=== PATIENT | female | born 1970 | race Caucasian/White ===

== ENCOUNTER 2017-08-15 18:27 | Emergency (ER) | payer OTHER ==
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
== END 2017-08-15 20:44 | disposition home or self-care (01) ==
LOC: ER 18:27
DX: M25.512 Pain in left shoulder (principal); V49.49XA Driver injured in collision with other motor vehicles in traffic accident, initial encounter; Z88.6 Allergy status to analgesic agent; E03.9 Hypothyroidism, unspecified; F41.9 Anxiety disorder, unspecified
CPT/HCPCS: 70450; 72125; 99284

== ENCOUNTER 2017-12-07 23:41 | Emergency (ER) | payer OTHER, SELFPAY ==
[2017-12-08] MEDS ORDERED: NA CHLORIDE 0.9% 1,000 ML ONE (00:12)
[2017-12-08 00:45] LABS: Absolute Monocytes 0.5 K/uL (0.1-1.3); Absolute Neutrophil 4.5 K/uL (1.8-8.0); Basophils % 0.6 % (0-1.3); Eosinophils % 2.3 % (0-4.4); Hematocrit 38.7 % (36.0-45.0); Lymphocytes % 27.1 % (15.3-44.8); MCH 31.2 pg (27.0-35.0); MCV 89.6 fL (80-100); MPV 7.2 fL (7.6-11.3); Monocytes % 7.4 % (3.3-12.3); RBC Red Blood Cell Count 4.32 M/uL (3.86-4.86)
[2017-12-08 00:49] LABS: Protime INR 0.92
[2017-12-08 00:51] LABS: Barbiturates NEGATIVE (NEGATIVE); Benzodiazepines NEGATIVE (NEGATIVE); Cocaine NEGATIVE (NEGATIVE); METHAMPHETAM NEGATIVE (NEGATIVE); Methadone NEGATIVE (NEGATIVE); Opiates NEGATIVE (NEGATIVE); Phencyclidine NEGATIVE (NEGATIVE); THC Cannibis NEGATIVE (NEGATIVE)
[2017-12-08] MEDS ORDERED: ACETAMINOPHEN 500 MG TAB ONE (00:58)
[2017-12-08 01:18] LABS: Urine Blood 1+ (NEG); Urine Glucose NEGATIVE (NEG); Urine Protein 1+ (NEG); Urine Specific Gravity <1.005 (1.005-1.030); Urine pH 5.5 (5.0-7.0)
[2017-12-08 01:29] LABS: ALT/SGPT 25 U/L (12-78); AST/SGOT 21 U/L (15-37); Albumin 3.8 g/dL (3.4-5.0); Alkaline Phosphatase 92 U/L (45-117); BUN Blood Urea Nitrogen 15 mg/dL (7-18); Bicarbonate 24 mmol/L (21-32); Bilirubin Direct < 0.1 mg/dL (0-0.2); Bilirubin Total 0.3 mg/dL (0.2-1.0); Glucose Level 110 mg/dL (74-106); Potassium 3.9 mmol/L (3.5-5.1); Protein, Total 7.5 g/dL (6.4-8.2); Sodium Level 139 mmol/L (136-145)
--- NOTE | 2017-12-08 01:37 | ER ---
Nurse's Notes [facility] Name: Arlette Quiñonez Age: 47 yrs Sex: Female : 1970 Arrival Date: 12/07/2017 Time: 23:44 Bed 30 Private MD: Diagnosis: Anxiety disorder, unspecified Presentation: 12/08 00:23 Presenting complaint: Patient states: she was off from a medicine and is having mg2 withdrawal symtoms like anxiety, shaking, sweating and palpitations. she started taking zoloft recently. Transition of care: patient was not received from another setting of care. Onset of symptoms was November 2017. Risk Assessment: Do you want to hurt yourself or someone else? Patient reports no desire to harm self or others. Initial Sepsis Screen: Does the patient meet any 2 criteria? No. Patient's initial sepsis screen is negative. Does the patient have a suspected source of infection? No. Patient's initial sepsis screen is negative. Care prior to arrival: None. 00:23 Method Of Arrival: Ambulatory mg2 00:23 Acuity: LEONARDO 3 mg2 Historical: - Allergies: 00:35 Aleve; mg2 00:35 Ibuprofen; mg2 - Home Meds: 00:35 Zoloft Oral [Active]; Synthroid 100 mcg Oral tab [Active]; mg2 - PMHx: 00:35 Anxiety; Hypothyroidism; mg2 - PSHx: 00:35 Tubal ligation; mg2 - Immunization history:: Flu vaccine is not up to date. - Social history:: Smoking status: Patient/guardian denies using tobacco, Patient/guardian denies using alcohol, street drugs, IV drugs. - Ebola Screening: : No symptoms or risks identified at this time. Screenin:23 Abuse screen: Denies threats or abuse. Denies injuries from another. Nutritional mg2 screening: No deficits noted. Tuberculosis screening: No symptoms or risk factors identified. Fall Risk IV access (20 points). Assessment: 00:32 General: Appears in no apparent distress. comfortable, Behavior is calm, cooperative. mg2 Pain: Complains of pain in head Pain does not radiate. Pain currently is 5 out of 10 on a pain scale. Quality of pain is described as aching, Pain began gradually, Is intermittent. Neuro: Level of Consciousness is awake, alert, obeys commands, Oriented to person, place, time, situation. Cardiovascular: Capillary refill < 3 seconds Patient's skin is warm and dry. Respiratory: No deficits noted. GI: No deficits noted. : No deficits noted. EENT: No deficits noted. Derm: Skin is intact, is healthy with good turgor, Skin is pink, warm \T\ dry. normal. Musculoskeletal: No signs and/or symptoms reported regarding the musculoskeletal system. 01:03 Reassessment: Patient appears in no apparent distress at this time. Patient and/or mg2 family updated on plan of care and expected duration. Pain level reassessed. Patient is alert, oriented x 3, equal unlabored respirations, skin warm/dry/pink. Vital Signs: 00:00 BP 182 / 123 LA Sitting (auto/reg); Pulse 108; Pulse Ox 99% on R/A; mb4 01:21 BP 137 / 90; Pulse 93; Resp 18; Pulse Ox 100% on R/A; mg2 ED Course: 12/07 23:44 Patient arrived in ED. ds1 23:56 Chavo Devries NP is PHCP. pm1 23:57 Spenser Dietrich MD is Attending Physician. pm1 23:57 Benedicto Hayes, ROSHAN is Primary Nurse. mg2 12/08 00:01 Bed in low position. Call light in reach. Pulse ox on. NIBP on. mb4 00:23 No provider procedures requiring assistance completed. Inserted saline lock: 20 gauge mg2 in right antecubital area, using aseptic technique. Blood collected. 00:25 Triage completed. mg2 00:35 Arm band placed on. mg2 01:35 Adan Sequeira MD is Referral Physician. pm1 01:57 IV discontinued, intact, bleeding controlled, No redness/swelling at site. Pressure mg2 dressing applied. Administered Medications: 00:22 Drug: NS 0.9% 1000 ml Route: IV; Rate: 1000 ml; Site: right antecubital; mg2 01:57 Follow up: Response: No adverse reaction; IV Status: Completed infusion mg2 00:54 Drug: Tylenol 1000 mg Route: PO; mg2 01:57 Follow up: Response: No adverse reaction mg2 01:56 Drug: Ativan 0.5 mg Route: IVP; Site: right antecubital; mg2 01:57 Follow up: Response: No adverse reaction; Medication administered at discharge. mg2 Outcome: 01:36 Discharge ordered by . pm1 01:57 Discharged to home ambulatory, with family. mg2 01:57 Condition: stable 01:57 Discharge instructions given to patient, family, Instructed on discharge instructions, follow up and referral plans. medication usage, Demonstrated understanding of instructions, follow-up care, medications, Prescriptions given X 1. 01:58 Patient left the ED. mg2 Signatures: Barbara Waldrop ds1 Chavo Devries NP STREET LIGHT REPAIRER pm1 Benedicto Hayes RN RN mg2 Jackie Penaloza mb4
--- NOTE | 2017-12-08 01:37 | EDPHYS ---
Physician Documentation [facility] Name: Arlette Quiñonez Age: 47 yrs Sex: Female : 1970 Arrival Date: 12/07/2017 Time: 23:44 Bed 30 Private MD: ED Physician Spenser Dietrich HPI: 12/08 01:00 This 47 yrs old Female presents to ER via Ambulatory with complaints of pm1 Anxiety and Possible Medication Withdrawal Symptoms. 01:00 Patient discussed changing her anxiety medications with her PCP, Dr. Sequeira. Patient pm1 wanted to wean off Effexor and start taking Zoloft instead. Patient started taking herself off one week ago but was afraid to take the Zoloft. Just started taking the Zoloft but is concerned that she is experiencing Effexor withdrawal. Patient was not able to contact her PCP today to inform him how she was doing. She expected that she would be getting a medication to help make the possible withdrawal easier. 01:00 Onset: The symptoms/episode began/occurred 3 day(s) ago. Severity of symptoms: in the pm1 emergency department the symptoms are worse. The patient has not experienced similar symptoms in the past. The patient has been recently seen by a physician: the patient's primary care provider, Dr. Sequeira. Historical: - Allergies: 00:35 Aleve; mg2 00:35 Ibuprofen; mg2 - Home Meds: 00:35 Zoloft Oral [Active]; Synthroid 100 mcg Oral tab [Active]; mg2 - PMHx: 00:35 Anxiety; Hypothyroidism; mg2 - PSHx: 00:35 Tubal ligation; mg2 - Immunization history:: Flu vaccine is not up to date. - Social history:: Smoking status: Patient/guardian denies using tobacco, Patient/guardian denies using alcohol, street drugs, IV drugs. - Ebola Screening: : No symptoms or risks identified at this time. ROS: 01:00 Constitutional: Negative for fever, chills, and weight loss, Eyes: Negative for injury, pm1 pain, redness, and discharge, ENT: Negative for injury, pain, and discharge, Neck: Negative for injury, pain, and swelling, Cardiovascular: Negative for chest pain, palpitations, and edema, Respiratory: Negative for shortness of breath, cough, wheezing, and pleuritic chest pain, Abdomen/GI: Negative for abdominal pain, nausea, vomiting, diarrhea, and constipation, Back: Negative for injury and pain, MS/Extremity: Negative for injury and deformity, Skin: Negative for injury, rash, and discoloration. 01:00 Neuro: Positive for headache. 01:00 Psych: Positive for anxiety, Negative for auditory hallucinations, visual hallucinations. Exam: 01:00 Constitutional: This is a well developed, well nourished patient who is awake, alert, pm1 and in no acute distress. Head/Face: Normocephalic, atraumatic. Eyes: Pupils equal round and reactive to light, extra-ocular motions intact. Lids and lashes normal. Conjunctiva and sclera are non-icteric and not injected. Cornea within normal limits. Periorbital areas with no swelling, redness, or edema. ENT: Nares patent. No nasal discharge, no septal abnormalities noted. Tympanic membranes are normal and external auditory canals are clear. Oropharynx with no redness, swelling, or masses, exudates, or evidence of obstruction, uvula midline. Mucous membranes moist. Neck: Trachea midline, no thyromegaly or masses palpated, and no cervical lymphadenopathy. Supple, full range of motion without nuchal rigidity, or vertebral point tenderness. No Meningismus. Chest/axilla: Normal chest wall appearance and motion. Nontender with no deformity. No lesions are appreciated. Cardiovascular: Regular rate and rhythm with a normal S1 and S2. No gallops, murmurs, or rubs. Normal PMI, no JVD. No pulse deficits. Respiratory: Lungs have equal breath sounds bilaterally, clear to auscultation and percussion. No rales, rhonchi or wheezes noted. No increased work of breathing, no retractions or nasal flaring. Abdomen/GI: Soft, non-tender, with normal bowel sounds. No distension or tympany. No guarding or rebound. No evidence of tenderness throughout. Back: No spinal tenderness. No costovertebral tenderness. Full range of motion. Skin: Warm, dry with normal turgor. Normal color with no rashes, no lesions, and no evidence of cellulitis. MS/ Extremity: Pulses equal, no cyanosis. Neurovascular intact. Full, normal range of motion. 01:00 Neuro: Orientation: is normal, Cerebellar function: normal finger to nose testing, Motor: moves all fours, Gait: is steady, at a normal pace, without difficulty. 01:00 Psych: Behavior/mood is anxious, Affect is animated. Vital Signs: 00:00 BP 182 / 123 LA Sitting (auto/reg); Pulse 108; Pulse Ox 99% on R/A; mb4 01:21 BP 137 / 90; Pulse 93; Resp 18; Pulse Ox 100% on R/A; mg2 MDM: 12/07 23:58 Patient medically screened. pm1 12/08 01:35 Data reviewed: vital signs. Data interpreted: Pulse oximetry: on room air is 100 %. pm1 Interpretation: normal. Counseling: I had a detailed discussion with the patient and/or guardian regarding: the historical points, exam findings, and any diagnostic results supporting the discharge/admit diagnosis, lab results, the need for outpatient follow up, to return to the emergency department if symptoms worsen or persist or if there are any questions or concerns that arise at home. 12/08 00:02 Order name: Acetaminophen; Complete Time: : pm12/08 00:02 Order name: Basic Metabolic Panel; Complete Time: pm12/08 00:02 Order name: CBC with Diff; Complete Time: pm12/08 00:02 Order name: ETOH Level; Complete Time: pm12/08 00:02 Order name: Hepatic Function; Complete Time: pm12/08 00:02 Order name: PT-INR; Complete Time: : pm12/08 00:02 Order name: Ptt, Activated; Complete Time: : pm12/08 00:02 Order name: Salicylate; Complete Time: : pm12/08 00:02 Order name: Urine Drug Screen; Complete Time: : pm12/08 00:02 Order name: TSH; Complete Time: pm12/08 00:41 Order name: Urine Dipstick--Ancillary (enter results); Complete Time: :31 mw2 12/08 00:02 Order name: EKG; Complete Time: 00:04 pm12/08 00:02 Order name: EKG - Nurse/Tech; Complete Time: 00:53 pm1 12/08 00:02 Order name: IV Saline Lock; Complete Time: 00:23 pm12/08 00:02 Order name: Labs collected and sent; Complete Time: 00:23 pm1 12/08 00:02 Order name: Urine Dipstick-Ancillary (obtain specimen); Complete Time: 00:53 pm1 12/08 00:02 Order name: Urine Test (obtain specimen); Complete Time: 00:53 pm1 Administered Medications: 00:22 Drug: NS 0.9% 1000 ml Route: IV; Rate: 1000 ml; Site: right antecubital; mg2 01:57 Follow up: Response: No adverse reaction; IV Status: Completed infusion mg2 00:54 Drug: Tylenol 1000 mg Route: PO; mg2 01:57 Follow up: Response: No adverse reaction mg2 01:56 Drug: Ativan 0.5 mg Route: IVP; Site: right antecubital; mg2 01:57 Follow up: Response: No adverse reaction; Medication administered at discharge. mg2 Disposition: 12/08/17 01:36 Discharged to Home. Impression: Anxiety disorder, unspecified. - Condition is Stable. - Discharge Instructions: Generalized Anxiety Disorder. - Prescriptions for Ativan 0.5 mg Oral Tablet - take 1 tablet by ORAL route every 8 hours As needed; 10 tablet. - Medication Reconciliation Form, Thank You Letter form. - Follow up: Adan Sequeira MD; When: 2 - 3 days; Reason: Recheck today's complaints, Continuance of care, Re-evaluation by your physician. - Problem is new. - Symptoms have improved. Addendum: 12/09/2017 04:11 Co-signature as Attending Physician, Spenser Dietrich MD. g s Signatures: Dispatcher [facility] Chavo Devries, DRILL GRINDER DRILL GRINDER pm1 Spenser Dietrich MD MD Benedicto Hayes RN RN mg2 Corrections: (The following items were deleted from the chart) 12/08 01:58 01:36 12/08/2017 01:36 Discharged to Home. Impression: Anxiety disorder, unspecified. mg2 Condition is Stable. Forms are Medication Reconciliation Form, Thank You Letter, Antibiotic Education, Prescription Opioid Use. Follow up: Adan Sequeira; When: 2 - 3 days; Reason: Recheck today's complaints, Continuance of care, Re-evaluation by your physician. Problem is new. Symptoms have improved. pm1
[2017-12-08] MEDS ORDERED: LORazepam 2 MG/ML VIAL ONE (01:58)
--- NOTE | 2017-12-08 10:03 | EKG ---
Test Date: 2017-12-08 Test Time: 00:44:06 Outside Parts Salesman: MEASUREMENT RESULTS: Intervals: Rate: 92 NV: 160 QRSD: 76 QT: 376 QTc: 464 [place]: P: 42 NV: 160 QRS: 43 T: 42 INTERPRETIVE STATEMENTS: Normal sinus rhythm Low voltage QRS Cannot rule out Anterior infarct, age undetermined Abnormal ECG No previous ECG available for comparison Electronically Signed On 12-08-17 10:02:03 CDT by Chirag Alvarez
== END 2017-12-08 01:58 | disposition home or self-care (01) ==
LOC: ER 23:41
DX: F41.9 Anxiety disorder, unspecified (principal); E03.9 Hypothyroidism, unspecified; Z88.6 Allergy status to analgesic agent
CPT/HCPCS: 36415; 80048; 80076; 80307; 80320; 80329; 81003; 84443; 85025; 85610; 85730; 93005; 96361; 96374; 99284; J7030

== ENCOUNTER 2021-08-10 07:54 | Day surgery (SDC) | payer OTHER, SELFPAY ==
[2021-08-06 09:20] LABS: Absolute Lymphocytes (CBC) 2.4 K/uL (0.7-4.9); Hematocrit 40.3 % (36.0-45.0); Lymphocytes % 36.9 % (15.3-44.8); MPV 6.8 fL (7.6-11.3); RBC Red Blood Cell Count 4.59 M/uL (3.86-4.86)
[2021-08-06 09:22] LABS: Protime INR 0.92
[2021-08-06 09:31] LABS: Potassium 3.9 mmol/L (3.5-5.1)
--- NOTE | 2021-08-06 10:08 | RAD REPORT ---
EXAM DESCRIPTION: Marielle Gallegos (2 Views)08/06/2021 9:52 am CLINICAL HISTORY: Preop for knee surgery COMPARISON: None FINDINGS: The lungs appear clear of acute infiltrate. The heart is normal size IMPRESSION: No acute abnormalities displayed
--- NOTE | 2021-08-06 13:31 | EKG ---
Test Date: 2021-08-06 Test Time: 08:53:35 Aesthetics Instructor: MARIA M MEASUREMENT RESULTS: Intervals: Rate: 74 NV: 154 QRSD: 74 QT: 374 QTc: 415 [place]: P: -19 NV: 154 QRS: 55 T: 34 INTERPRETIVE STATEMENTS: Normal sinus rhythm Low voltage QRS Borderline ECG Compared to ECG 12/08/2017 00:44:06 Myocardial infarct finding no longer present Electronically Signed On 08-06-21 13:31:13 CDT by Sai Klein
[2021-08-10] MEDS ORDERED: CEFAZOLIN SODIUM 1 GM/VIAL ONE (08:35)
[2021-08-10] MEDS ORDERED: Ringers Lactate 1,000 ML IV ONE (08:35)
[2021-08-10] MEDS ORDERED: propofoL 200 MG/20 ML VIAL IV ONE (09:14)
[2021-08-10] MEDS ORDERED: FENTANYL CITR 100 MCG/2 ML ONE ×2 (09:14→10:48)
[2021-08-10] MEDS ORDERED: MIDAZOLAM HCL 2 MG/2 ML INJ ONE (09:14)
[2021-08-10] MEDS ORDERED: ONDANSETRON 4 MG/2 ML VIAL ONE (09:15)
[2021-08-10] MEDS ORDERED: LIDOCAINE 2% MPF 5 ML VIAL ONE (09:15)
[2021-08-10] MEDS ORDERED: BUPIVACAINE 0.25% PF 10 ML VIAL ONE (09:31)
[2021-08-10] MEDS ORDERED: dexAMETHasone 10 MG/ML VIAL ONE (09:58)
--- NOTE | 2021-08-10 10:29 | P.BOP ---
Preoperative diagnosis: right carpal tunnel syndrome Postoperative diagnosis: same Primary procedure: right open carpal tunnel release Guidance Services Coordinator: NONE,NONE Estimated blood loss: 2 cc Specimen: none Findings: see dictation Anesthesia: General Complications: None Implants: none Fluids & blood products: per anesthesia record; TT: 18 mins @ 250 mmHg Transferred to: Recovery Room Condition: Good
[2021-08-10] MEDS ORDERED: CODEINE 30MG/APAP 300MG TAB ONE (11:20)
[2021-08-10 13:03] VITALS: BP 117/83; TEMP 96.7; O2SAT 94
[2021-08-10 14:30] LABS: Urine Specific Gravity/Preg 1.025 (1.005-1.030)
--- NOTE | 2021-08-10 23:32 | OP ---
Date of Procedure: 08/10/2021 Surgeon: Kalyan Quiñones MD Preoperative Diagnosis: Right carpal tunnel syndrome. Postoperative Diagnosis: Right carpal tunnel syndrome. Procedure Performed: Right open carpal tunnel release. Anesthesia: General LMA. Fluids: Per Anesthesia record. Estimated Blood Loss: 2 cc. Complications: None. Implants: None. Touniquet Time: 18 minutes at 250 mmHg. Indication For Procedure: Arlette is a 51-year-old female who presented to my clinic with signs, symp toms, and EMG findings consistent with a carpal tunnel syndrome. The patient had significant physica l symptoms that affected her activities of daily living. I discussed with the patient at length risk s and benefits associated with operative and nonoperative treatment. She expressed understanding and elected to procedure with operative treatment. Description Of Procedure: After informed consent was obtained, the patient was identified in the pre operative holding area. The right upper extremity was marked. The patient was then brought back to the operating room, transferred to operating table in supine fashion, placed under general LMA anesth esia. Right upper extremity was then prepped and draped in usual sterile fashion. A time-out was in itiated. The correct patient and procedure confirmed and identified. The patient did receive preope rative prophylactic antibiotics. The right upper extremity was then exsanguinated using an Esmarch a nd the tourniquet was inflated to 250 mmHg. Approximately, a 3 cm longitudinal incision was made jus t ulnar to the thenar crease. Dissection was then taken down to the palmar fascia, which was identif ied. A [place] elevator was placed just deep to the palmar fascia and transverse carpal ligament. A 1 5 blade was then used to release the transverse carpal ligament and palmar fascia with the [place] elev ator protecting the median nerve at all times. Any remaining fascial bands were then released using a blunt-tip Metzenbaum with the tip seen superficially to protect the median nerve at all times. Aft er this was completed, the wound was then irrigated thoroughly with normal saline. Skin was approxim ated using a 5-0 Prolene. Sterile dressings were applied. Tourniquet was let down. The patient was awakened and transferred to PACU in stable condition. Postoperative Plan: The patient will follow up in 1 week for wound check and suture removal CV/MODL Voice ID: [id number] Report ID: [id number]
== END 2021-08-10 11:45 | disposition home or self-care (01) ==
LOC: OR 07:54
PROVIDERS: ATTEND Orthopaedic Surgery Sports Medicine
PROC: 01N50ZZ Release Median Nerve, Open Approach (ICD-10-PCS; principal; 2021-08-10 09:15)
DX: G56.01 Carpal tunnel syndrome, right upper limb (principal); Z20.822 Contact with and (suspected) exposure to COVID-19
CPT/HCPCS: 93005; 85025; 80048; 36415; 81025; 85610; 85730; 71046; 64721; U0002; J2704; J2250; J3010 ×2; J1100; J7120; J2405; J0690